=== PATIENT | male | born 1995 | race Caucasian/White ===

== ENCOUNTER 2018-03-05 15:07 | Emergency (ER) | payer OTHER ==
[2018-03-05 15:18] VITALS: BP 130/75
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
[2018-03-05] MEDS ORDERED: IBUPROFEN 600 MG TABLET PO STA (15:49)
[2018-03-05] MEDS ORDERED: ACETAMINOPHEN 325 MG TABLET PO STA (15:49)
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
== END 2018-03-05 18:28 | disposition home or self-care (01) ==
LOC: ED 15:07
DX: S02.2XXA Fracture of nasal bones, initial encounter for closed fracture (principal); S00.11XA Contusion of right eyelid and periocular area, initial encounter; S00.83XA Contusion of other part of head, initial encounter; S00.431A Contusion of right ear, initial encounter; Y09 Assault by unspecified means
CPT/HCPCS: 70450; 70486; 99283; A9270

== ENCOUNTER 2018-06-07 01:38 | Emergency (ER) | payer OTHER ==
--- NOTE | 2018-06-07 01:48 | ED Physician Documentation ---
History of Present Illness - Stated complaint Stated Complaint: ALLERGY SYMPTONS - History obtained from History obtained from: Patient - History of Present Illness Timing: Today Pain level now: 0 Improved by: sitting up/standing Worsened by: lying down - Additonal information Additional information: c/o mild sore throat since last night and gradually worsening thin, mucous secretions dripping post-nasally. He took Claritin earlier today and during the day felt he was able to control the secretions with swallowing them, but tonight he recurrently wakes due to pooling of secretions that cause him to cough. Review of Systems Constitutional: denies: Fever, Chills, Sweats Ears: denies: Ear pain Nose: reports: Rhinorrhea / runny nose. denies: Congestion, Sinus pressure / pain Throat: reports: Sore throat Respiratory: reports: Cough (mild, [employer]). denies: Dyspnea PD PAST MEDICAL HISTORY - Past Medical History Cardiovascular: None Respiratory: None Neuro: None - Past Surgical History Past Surgical History: No - Present Medications Home Medications: Ambulatory Orders Medication Instructions Recorded Confirmed No Known Home Medications 06/07/18 06/07/18 - Allergies Allergies/Adverse Reactions: Allergies Allergy/AdvReac Type Severity Reaction Status Date / Time No Known Drug Allergies Allergy Verified 06/07/18 01:50 - Social History Does the pt smoke?: No Smoking Status: Never smoker Does the pt drink ETOH?: Yes Does the pt have substance abuse?: No - Immunizations Immunizations are current?: Yes - POLST Patient has POLST: No PD ED PE NORMAL - Vitals Vital signs reviewed: Yes - General General: Alert and oriented X 3, No acute distress, Well developed/nourished - HEENT HEENT: Moist mucous membranes, Pharynx benign - Respiratory Respiratory: No respiratory distress, Clear bilaterally PD ED PE EXPANDED - HEENT HEENT: Nasal congestion (nasal mucosa is erythematous and boggy bilaterally) Results - Vitals Vitals: Vital Signs - 24 hr 06/07/18 01:44 Temperature 36.3 C L Heart Rate 64 Respiratory 16 Rate Blood Pressure 133/81 H O2 Saturation 100 Oxygen O2 Source Room air PD MEDICAL DECISION MAKING - ED course Complexity details: considered differential, d/w patient Departure - Departure Disposition: 01 Home, Self Care Clinical Impression: Rhinitis Condition: Good Instructions: ED Upper Resp Infec No Abx Tx, ED Allergy Nasal Follow-Up: RASHAD Keene [Provider Group] Comments: As discussed, I recommend you resume using Flonase: 2 sprays in each nostril once per day for 1 week. You can take benadryl at night as needed for symptoms. The Claritin can be used during the day; it will cause less drowsiness than the benadryl. Discharge Date/Time: 06/07/18 02:24
[2018-06-07 01:50] VITALS: BP 133/81
[2018-06-07] MEDS ORDERED: DEXAMETHASONE 10 MG/ML VIAL PO STA (02:16)
[2018-06-07] MEDS ORDERED: diphenhydrAMINE 25 MG CAPSULE PO STA (02:16)
[2018-06-07] MEDS ORDERED: CHERRY SYRUP 10 ML UDC PO ONE (02:25)
== END 2018-06-07 02:24 | disposition home or self-care (01) ==
LOC: ED 01:38
DX: J31.0 Chronic rhinitis (principal)
CPT/HCPCS: 99282; A9270

== ENCOUNTER 2020-04-01 00:13 | Emergency (ER) | payer OTHER ==
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
[2020-04-01 00:55] VITALS: BP 133/75
== END 2020-04-01 00:55 | disposition home or self-care (01) ==
LOC: ED 00:13
DX: S01.81XA Laceration without foreign body of other part of head, initial encounter (principal); W01.198A Fall on same level from slipping, tripping and stumbling with subsequent striking against other object, initial encounter; Y92.000 Kitchen of unspecified non-institutional (private) residence as the place of occurrence of the external cause
CPT/HCPCS: 12013; 99281; 99282

== ENCOUNTER 2021-03-05 09:00 | Outpatient (CLI) | payer OTHER | END 2021-03-05 23:59 | disposition home or self-care (01) | LOC: LAB.N 09:00 | PROVIDERS: ATTEND Physician Assistant | DX: R50.9 Fever, unspecified (principal); Z20.822 Contact with and (suspected) exposure to COVID-19 ==

== ENCOUNTER 2022-09-29 14:33 | Emergency (ER) | payer OTHER ==
--- NOTE | 2022-09-29 14:38 | ED Physician Documentation ---
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 The finger was accidentally smashed in a large steel safe for just a brief second. He has pain at the distal tip. He does have a superficial laceration just proximal to the cuticle edges well as superficial laceration on the fat pad. He reports the finger feels numb. He has preserved flexion extension at MCP, PIP and DIP joints. Tetanus is up-to-date. Patient is right-hand dominant. Review of Systems Skin: reports: Laceration (s) Musculoskeletal: reports: Extremity pain PD PAST MEDICAL HISTORY - Past Medical History Cardiovascular: None Respiratory: None Neuro: None - Past Surgical History Past Surgical History: Yes - Present Medications Home Medications: Ambulatory Orders Medication Instructions Recorded Confirmed No Known Home Medications 06/07/18 04/01/20 - Allergies Allergies/Adverse Reactions: Allergies Allergy/AdvReac Type Severity Reaction Status Date / Time No Known Drug Allergies Allergy Verified 09/29/22 14:39 - Social History Does the pt smoke?: No Smoking Status: Never smoker Does the pt drink ETOH?: Yes Does the pt have substance abuse?: No - Immunizations Immunizations are current?: Yes - POLST Patient has POLST: No PD ED PE EXPANDED - General General: Alert, No acute distress - Extremities Extremities: Left finger(s) (Mild swelling and ecchymosis distal tip left index finger. Very superficial laceration just proximal to the cuticle edge on the dorsum of the finger as well as a more superficial laceration on the fat pad. Preserved flexion extension at MCP, PIP and DIP joints. Reports subjective numbness and tin) Results - Vitals Vitals: Vital Signs - 24 hr 09/29/22 14:37 Temperature 531.7 C H Heart Rate 98 Respiratory 18 Rate Blood Pressure 151/71 H O2 Saturation 100 Oxygen O2 Source Room air - Rads (name of study) left finger Relevant Findings:: EMP independent interpretation of test (No acute fracture) Procedures - Laceration (location) left index finger Length in cm: 1 Wound type: Curved, Superficial Neurovascular status: Sensory intact, Motor intact Tendon involvement: Tendon intact Wound preparation: Irrigated copiously NS Skin layer closure: Dermabond Other: Patient tolerated well, Tetanus UTD PD Medical Decision Making - ED course Complexity details: reviewed results, d/w patient ED course: 27-year-old presents emergency department for evaluation of acute left index finger crush injury sustained when he was opening a safe for the [employer]. He does have 2 superficial abrasions/lacerations on the dorsum and ventral surface of the distal tip. He reports numbness and tingling. X-ray of the left index finger is interpreted by myself shows no acute fracture or dislocation. Tetanus is up-to-date. The laceration on the fat pad of the finger was closed with glue. Patient was given a finger splint for comfort. Discussed routine care as well as emergent return precautions for any concerns of infection. Recommend Tylenol Motrin for discomfort. Departure - Departure Disposition: 01 Home, Self Care Clinical Impression: Crush injury Finger laceration Qualifiers: Encounter type: sequela Finger: index finger Damage to nail status: without damage Foreign body presence: without foreign body Laterality: left Qualified Code(s): S61.211S - Laceration without foreign body of left index finger without damage to nail, sequela Condition: Stable Record reviewed to determine appropriate education?: Yes Comments: Murray the x-ray of your finger does not show a broken bone. You did crushed her finger in the door of the safe and I expect for the next several days it will be generally uncomfortable and sore. I do recommend that you take Tylenol 500 mg 3 times a day or alternate with ibuprofen 600 mg 3 times a day. Keeping the finger elevated will also be helpful. You do have a superficial abrasion on the top of your finger that does not need any wound care other than antibiotic ointment. The laceration on your fat pad was closed with glue. No special care is needed of this the glue will simply wear away over the next week. Follow-up with [employer] medical. Return for any concerns of infection.
[2022-09-29 14:41] VITALS: BP 151/71
[2022-09-29] MEDS ORDERED: IBUPROFEN 600 MG TABLET PO STA (14:42)
--- NOTE | 2022-09-29 16:07 | XRAY Report ---
PROCEDURE: Finger(s) LT INDICATIONS: crush injury index finger TECHNIQUE: AP hand, 2 views of the second finger(s) acquired. COMPARISON: None. FINDINGS: Bones: No fractures or dislocations. No suspicious bony lesions. Soft tissues: No suspicious soft tissue calcifications or masses. IMPRESSION: No acute bony abnormality. If pain persists with conservative management, consider repeat radiographs in 10-14 days or cross-sectional imaging. Reviewed by: Clifton Adames MD on 09/29/2022 4:05 PM PDT Approved by: Clifton Adames MD on 09/29/2022 4:05 PM PDT Station ID: [id number]
== END 2022-09-29 15:10 | disposition home or self-care (01) ==
LOC: EDUNIT# → EDBD → ED 14:33
DX: S61.211A Laceration without foreign body of left index finger without damage to nail, initial encounter (principal); X58.XXXA Exposure to other specified factors, initial encounter; Y99.1 Military activity
CPT/HCPCS: 12001; 73140; 99283; A9270

== ENCOUNTER 2023-02-12 16:57 | Emergency (ER) | payer OTHER ==
--- NOTE | 2023-02-12 17:19 | ED Physician Documentation ---
History of Present Illness - Stated complaint Stated Complaint: FALL/FACE INJ - Chief complaint Chief Complaint: Trauma Hd/Nk - Additonal information Additional information: 28-year-old male presents emergency department for evaluation of right-sided facial pain and laceration. Tripped at home falling forward striking the right side of his face on a sharp coffee table. He does have a laceration below the right eye. But also reporting increased pain in the jaw. No trismus or obvious malocclusion. Reports tetanus is up-to-date. Did not lose consciousness. Denies neck pain. Review of Systems Constitutional: denies: Fever Skin: reports: Laceration (s) Musculoskeletal: reports: Other (facial pain) Neurologic: reports: Headache, Head injury. denies: Syncope, Seizure, Confused, LOC Psychiatric: reports: Reviewed and negative Endocrine: reports: Reviewed and negative PD PAST MEDICAL HISTORY - Past Medical History Cardiovascular: None Respiratory: None Neuro: None - Past Surgical History Past Surgical History: Yes - Present Medications Home Medications: Ambulatory Orders Medication Instructions Recorded Confirmed No Known Home Medications 06/07/18 02/12/23 - Allergies Allergies/Adverse Reactions: Allergies Allergy/AdvReac Type Severity Reaction Status Date / Time No Known Drug Allergies Allergy Verified 09/29/22 14:39 - Social History Does the pt smoke?: No Smoking Status: Never smoker Does the pt drink ETOH?: Yes Does the pt have substance abuse?: No - Immunizations Immunizations are current?: Yes - POLST Patient has POLST: No PD ED PE EXPANDED - General General: Alert, No acute distress - HEENT HEENT: Head injury, PERRL, EOMI, Other (Negative for raccoon eyes, bullock sign, hemotympanums). No: Atraumatic HEENT Visual: 1 - laceration 2 - swelling (Contusion) - Cardiac Cardiac: Regular Rate - Respiratory Respiratory: Clear to ausultation [place]. No: Distress, Labored - Neuro Neuro: Alert and Oriented X 3, CNII-XII intact Results - Vitals Vitals: Vital Signs - 24 hr 02/12/23 17:12 Temperature 36.1 C L Heart Rate 76 Respiratory 18 Rate Blood Pressure 132/85 H O2 Saturation 99 Oxygen O2 Source Room air Procedures - Laceration (location) right cheek Length in cm: 2 Wound type: Linear, Into subcut fat Neurovascular status: Sensory intact, Motor intact Anesthesia: Lidocaine 1% Wound preparation: Chlorhexadine Skin layer closure: Nylon, Interrupted, Size #-0 - enter number (5), Sutures - enter # (3) Other: Patient tolerated well, No complications, Tetanus UTD Departure - Departure Disposition: 01 Home, Self Care Clinical Impression: Ground-level fall Cheek laceration Qualifiers: Encounter type: initial encounter Laterality: right Qualified Code(s): S01.411A - Laceration without foreign body of right cheek and temporomandibular area, initial encounter Contusion, cheek Qualifiers: Encounter type: initial encounter Qualified Code(s): S00.83XA - Contusion of other part of head, initial encounter Condition: Stable Record reviewed to determine appropriate education?: Yes Comments: You are seen today in the emergency department after a fall at home which she struck your face on the coffee table. You do have a contusion or bruise to the right cheek as well as a small laceration. 3 sutures were placed in this laceration and should be removed in about 7 to 10 days. In general I recommend they take Tylenol or ibuprofen [id number] for discomfort. The CT of the bones of your face did not show any broken bones. In general I would expect this to be getting better over the next week to 10 days. Return immediately to the ER for any new or worsening symptoms, inability to fully open your mouth, inability tolerate your oral secretions. Patient Forms: PCP List
[2023-02-12] MEDS ORDERED: BACITRACIN ZINC OINT 1 PACKET TOP STA (17:38)
--- NOTE | 2023-02-12 18:50 | CT Report ---
PROCEDURE: Maxillofacial CT without contrast INDICATIONS: r/o orbital fx after fall TECHNIQUE: Helical axial CT of the facial structures and mandible were obtained without intravenous contrast and reformatted in multiple planes. Radiation dose reduction was achieved using automated e xposure control and adjustment of mA and/or kV according to patient size. COMPARISON: None. FINDINGS: Maxillofacial Bones: The zygomaticomaxillary complex is intact. The pterygoid plates and skull base are unremarkable. No evidence of fracture or lytic lesion. Mandible: The mandible is intact without fracture. Unremarkable temporomandibular articulation. Dentition: Unremarkable mandibular and maxillary dentition. Soft tissues: Right periorbital soft tissue swelling Orbits: The osseous orbits, globes and ocular muscles unremarkable. Sinuses and Mastoid: Left maxillary sinus retention cysts without remodeling. IMPRESSION: Right periorbital soft tissue swelling without fracture or foreign body Reviewed by: Kirk Umanzor MD on 02/12/2023 5:49 PM [place] Approved by: Kirk Umanzor MD on 02/12/2023 5:49 PM [place] Station ID: [id number]
[2023-02-12] MEDS ORDERED: oxyCODONE 5 MG TABLET PO STA (18:56)
[2023-02-12 19:08] VITALS: BP 138/79; O2SAT 98
== END 2023-02-12 19:12 | disposition home or self-care (01) ==
LOC: ED 16:57
DX: S01.411A Laceration without foreign body of right cheek and temporomandibular area, initial encounter (principal); S09.90XA Unspecified injury of head, initial encounter; W01.190A Fall on same level from slipping, tripping and stumbling with subsequent striking against furniture, initial encounter; Y92.009 Unspecified place in unspecified non-institutional (private) residence as the place of occurrence of the external cause
CPT/HCPCS: 12011; 70486; 99284; A9270

== ENCOUNTER 2023-08-10 22:47 | Emergency (ER) | payer OTHER ==
[2023-08-10 22:52] VITALS: BP 126/61; O2SAT 100
--- NOTE | 2023-08-10 23:28 | ED Physician Documentation ---
History of Present Illness - Stated complaint Stated Complaint: BACK PX - Chief complaint Chief Complaint: Back Pain - History obtained from History obtained from: Patient - Additonal information Additional information: 28yM with history of L lower back pain p/w sudden onset L low back pain radiating upward and to the groin with associated popping sensation while lifting a heavy object at work today. Took tylenol 325 with minimal response to pain. denies numbness in the legs or groin, weakness, urinary or fecal incontinence or retention, midline pain or fever. PD PAST MEDICAL HISTORY - Past Medical History Cardiovascular: None Respiratory: None Neuro: None - Past Surgical History Past Surgical History: Yes - Present Medications Home Medications: Ambulatory Orders Medication Instructions Recorded Confirmed No Known Home Medications 06/07/18 08/10/23 - Allergies Allergies/Adverse Reactions: Allergies Allergy/AdvReac Type Severity Reaction Status Date / Time No Known Drug Allergies Allergy Verified 08/10/23 22:50 - Social History Does the pt smoke?: No Smoking Status: Never smoker Does the pt drink ETOH?: Yes Does the pt have substance abuse?: No - Immunizations Immunizations are current?: Yes - POLST Patient has POLST: No PD ED PE NORMAL - Vitals Vital signs reviewed: Yes - General General: Alert and oriented X 3, No acute distress, Well developed/nourished - HEENT HEENT: Atraumatic, PERRL, EOMI - Neck Neck: No bony TTP - Back Back: No spinal TTP, Other (Negative straight leg raise bilaterally. L lower ba ck discomfort to palpation in muscle distribution) - Derm Derm: Normal color, Warm and dry, No rash - Extremities Extremities: Other (2+ DP pulses BL LE. normal sensation and movement) - Neuro Neuro: No motor deficit, No sensory deficit Results - Vitals Vitals: Vital Signs - 24 hr 08/10/23 22:50 Temperature 36.8 C Heart Rate 78 Respiratory 16 Rate Blood Pressure 126/61 O2 Saturation 100 Oxygen O2 Source Room air PD Medical Decision Making - ED course ED course: 28yM p/w L lower back pain after lifting heavy object at work today, that appears to be simple muscle strain. symptomatic care discussed. Toradol 30mg IM provided. return precautions given. plan to f/u with pcm. Departure - Departure Disposition: 01 Home, Self Care Clinical Impression: Back pain Condition: Stable Instructions: ED Low Back Pain Injury Comments: You were seen in the emergency department for lower back muscle strain. Take ibuprofen 400 or 600 mg every 6 hours as needed for pain with a snack or meal. Please rest and recover over the next couple days, follow-up with your primary care provider in 48 hours for medical clearance to return to work, and return to the emergency department if you have any new or worsening symptoms or other concerns. Forms: Activity restrictions Discharge Date/Time: 08/10/23 23:48
[2023-08-10] MEDS: KETOROLAC 30 MG/ML VIAL IM STA (23:31)
== END 2023-08-10 23:48 | disposition home or self-care (01) ==
LOC: ED 22:47
DX: S39.012A Strain of muscle, fascia and tendon of lower back, initial encounter (principal); X50.0XXA Overexertion from strenuous movement or load, initial encounter; Y93.89 Activity, other specified; Y99.1 Military activity
CPT/HCPCS: 96372; 99283

== ENCOUNTER 2023-12-26 08:46 | Outpatient (CLI) | payer OTHER ==
--- NOTE | 2023-12-26 10:59 | MRI Report ---
Hip LT WO CLINICAL HISTORY: 28 years of age, Male, HIP PAIN. COMPARISON: None Technique: Multisequence, multiplanar MRI of the left hip was performed without contrast. IV CONTRAST: Not given FINDINGS: Labrum: Anterior superior labral tear (7:10). Ligaments: Unremarkable. Tendons: The left iliopsoas, adductor, and hamstring tendons are unremarkable. The left gluteal minim us and the left gluteal medius are unremarkable. Osseous and cartilaginous structures: Marrow signal of the visualized lower lumbar spine, the sacrum, and bilateral sacroiliac joints are unremarkable. No acute fracture or dislocation of either hip. No focal chondral defect of the left hip. Miscellaneous: Unremarkable IMPRESSION: Anterior superior labral tear of the left hip. Reviewed by: Nelly Armstrong MD on 12/26/2023 10:58 AM PDT Approved by: Nelly Armstrong MD on 12/26/2023 10:58 AM PDT Station ID: [id number]
--- NOTE | 2023-12-26 11:06 | MRI Report ---
Lumbar Spine WO Clinical History: 28 years of age, Male, LOW BACK PAIN. Comparison: No priors available Technique: Multiplanar multisequence lumbar spine MRI without contrast was performed. Findings: Prior surgery: None. Vertebral bodies: Vertebral body heights are maintained. Alignment: Straightening of the lumbar spine. Mild retrolisthesis of L5 on S1. Bone marrow: Unremarkable for age. Intervertebral discs: Disc height is grossly well maintained. The conus medullaris is normal in contour, signal intensity, and location. The tip of the conus is at T12-L1. The following axial levels are detailed below: T12-L1: No central canal stenosis. No right neuroforaminal stenosis. No left neuroforaminal stenosis. L1-L2: No central canal stenosis. No right neuroforaminal stenosis. No left neuroforaminal stenosis. L2-L3: No central canal stenosis. No right neuroforaminal stenosis. No left neuroforaminal stenosis. L3-L4: No central canal stenosis. No right neuroforaminal stenosis. No left neuroforaminal stenosis. L4-L5: Small amount of fluid within the right facet. No central canal stenosis. No right neuroforamin al stenosis. No left neuroforaminal stenosis. L5-S1: Small amount of fluid within bilateral facet. Mild bilateral facet arthropathy. No central can al stenosis. No right neuroforaminal stenosis. No left neuroforaminal stenosis. Visualized sacrum and pelvis: Visualized sacrum is intact. No abdominal aortic aneurysm. IMPRESSION: Minimal degenerative changes of the lumbar spine, without central canal or neuroforaminal stenosis. Reviewed by: Nelly Armstrong MD on 12/26/2023 11:04 AM PDT Approved by: Nelly Armstrong MD on 12/26/2023 11:04 AM PDT Station ID: [id number]
== END 2023-12-26 08:47 | disposition home or self-care (01) ==
LOC: DI 08:46
DX: M47.817 Spondylosis without myelopathy or radiculopathy, lumbosacral region (principal); M47.816 Spondylosis without myelopathy or radiculopathy, lumbar region; S73.192A Other sprain of left hip, initial encounter